=== PATIENT | female | born 1955 | race Caucasian/White ===

== ENCOUNTER → 2019-04-17 | Outpatient (CLI) | payer MEDICARE, OTHER ==
--- NOTE | 2019-04-18 11:57 | XCELERA REPORT ---
[address] [address] Tel: [phone] Fax: [phone] Lower Extremity Arterial Evaluation Name: HALLE CANO Age: 63 yrs Gender: Female : 1955 Patient Status: Outpatient Patient Location: [facility] Study Date: 04/17/2019 03:32 PM Procedure: Ankle brachial indicies performed. Reason For Study: BLE PAIN, MILA Ordering Physician: MANDEEP GOODE Performed By: Rodney Tubbs Right Side Arterial Evaluation MILA in Posterior Tibial:0.95.. 0.79 in DP. Multiphasic waveform. Left Side Arterial Evaluation MILA in Posterior Tibial:0.78. Multiphasic waveform. Interpretation Summary Mildly decreased MILA. Suggesting slight compromise in artrial system , within the limitations of this technique. : MANDEEP GOODE > Lg Powell
== END ==
LOC: SP 13:32
PROVIDERS: ATTEND Physician Assistant
DX: I73.9 Peripheral vascular disease, unspecified (principal); M79.604 Pain in right leg; M79.605 Pain in left leg
CPT/HCPCS: 93922

== ENCOUNTER 2019-12-06 10:41 | Day surgery (SDC) | payer MEDICARE, OTHER ==
[~2019-12-06 10:41] MED LIST: PROPOFOL INJ 200 MG/20 ML VIAL IV ONE
[2019-12-06] MEDS ORDERED: SIMETHICONE 80 MG TAB.CHEW ONE (12:35)
[2019-12-06 12:47] VITALS: BP 121/64
--- NOTE | 2019-12-06 12:48 | Operative Report ---
Operative Report DATE OF SURGERY: 12/06/19 Operative Report: The risk, benefits and alternatives of the procedure including the risk of bleeding, perforation requiring surgery have been explained to the patient in detail and informed consent has been obtained. Patient is brought back to the endoscopy suite and placed in a left, lateral decubital position. Timeout was called. Propofol medication is administered. Rectal examination is done which did not reveal any masses, tears or fissures. An Olympus upper scope was introduced into the patient's rectum. Scope was then carefully advanced all the way to the cecum. The cecum was identified by the usual anatomical landmarks of the ileocecal valve as well as the appendiceal office. Photodocumentation is obtained. Scope was then sequentially pulled back via the rest segments of the colon including the ascending colon, hepatic flexure, transverse colon, splenic flexure, descending colon finding to the rectosigmoid portions of the colon. Retroflexion maneuvers performed. PREOPERATIVE DIAGNOSIS: Change in bowel habits, colorectal cancer screening POSTOPERATIVE DIAGNOSIS: Internal hemorrhoids. Diverticulosis. Right side colon inflammation status post biopsy rule out collagenous colitis OPERATION: Colonoscopy with biopsy SURGEON: YOLANDA WISE ANESTHESIA: LMAC TISSUE REMOVED OR ALTERED: As noted above. COMPLICATIONS: None. ESTIMATED BLOOD LOSS: None. INTRAOPERATIVE FINDINGS: As noted above. PROCEDURE: Patient tolerated the procedure well. No immediate postprocedure complications are noted. Patient is discharged in good condition. Discharge date 12/06/2019. Discharge diet: Regular. Discharge activity: Regular. 2 to 3-week follow-up to discuss findings. Patient is instructed to call the office or proceed to the emergency room should there be any further palpitations. Follow-up as outpatient. 10-year surveillance colonoscopy.
== END 2019-12-06 12:50 | disposition home or self-care (01) ==
LOC: END 10:41
PROVIDERS: ATTEND Internal Medicine Gastroenterology
DX: K64.8 Other hemorrhoids (principal); K57.30 Diverticulosis of large intestine without perforation or abscess without bleeding; K52.9 Noninfective gastroenteritis and colitis, unspecified; Z86.010 Personal history of colon polyps; Z79.899 Other long term (current) drug therapy; Z88.0 Allergy status to penicillin; E07.9 Disorder of thyroid, unspecified; R01.0 Benign and innocent cardiac murmurs
CPT/HCPCS: 45380; 88305 ×2; A9270; J2704; 811

== ENCOUNTER → 2020-10-14 | Outpatient (CLI) | payer MEDICARE, OTHER | LOC: OD 10:04 | PROVIDERS: ATTEND Physician Assistant | DX: R07.89 Other chest pain (principal) | CPT/HCPCS: 36415; 84484; 85379 ==